=== PATIENT | female | born 1980 ===

== ENCOUNTER 2018-04-12 10:26 | Emergency (ER) | payer OTHER ==
[~2018-04-12] VITALS: Ht 177.8 cm; Wt 133.4 kg
[~2018-04-12 10:26] MED LIST: ACIDOPHILUS1 EACH PO; CIPRO500 MG PO; FLAGYL500MG PO; KETO10TA2 PO; VASOTEC10 MG PO; ZANTAC150 MG PO
== END 2018-04-12 13:19 | disposition home or self-care (01) ==
LOC: ER 10:26
DX: B34.9 Viral infection, unspecified (principal)

== ENCOUNTER 2019-08-05 18:22 | Emergency (ER) | payer OTHER ==
[~2019-08-05] VITALS: Ht 177.8 cm; Wt 127.0 kg
[2019-08-06] MEDS ORDERED: DOLOGEN CAPLET1 EACH PO (01:05)
[2019-08-06] MEDS ORDERED: ZITHROMAX500 MG PO (01:05)
[2019-08-06] MEDS ORDERED: TUSNEL LIQUID178 ML PO (01:05)
[2019-08-06] MEDS ORDERED: CLARITIN10 MG PO (01:05)
== END 2019-08-06 01:33 | disposition home or self-care (01) ==
LOC: ER 18:22
DX: B34.9 Viral infection, unspecified (principal)